=== PATIENT | female | born 1975 | race Two or more races ===

== ENCOUNTER 2019-08-11 08:37 | Outpatient (CLI) | payer OTHER ==
--- NOTE | 2019-08-25 09:32 | Mammography Report ---
Reason: ROUTINE MAMMO Procedure Date: 08/11/2019 Accession Number: [id number] / [id number] Procedure: MGN - Screening Mammo Dig Bilat CPT Code: Final Report FULL RESULT: EXAM: Screening Mammo Dig Bilat DATE: 08/11/2019 9:00 AM CLINICAL HISTORY: Screening encounter. History of late childbearing. TECHNIQUE: (B) - Bilateral CC, laterally exaggerated CC, MLO views were obtained. COMPARISON: 08/08/2016 through 08/30/2015. PARENCHYMAL PATTERN: (D) - The breast(s) demonstrate(s) heterogeneously dense fibroglandular parenchyma. FINDINGS: There are no suspicious masses, calcifications, or areas of distortion. IMPRESSION: Negative examination. BI-RADS category 1. RECOMMENDATION: (ANNUAL) - Recommend routine annual screening mammography. BI-RADS CATEGORY: (1) - Negative. STANDARD QUALIFYING STATEMENTS: 1. This examination was not reviewed with the aid of Computer-Aided Detection (CAD). 2. A negative or benign imaging report should not preclude biopsy if clinically suspicious findings are present. 3. Dense breasts may obscure an underlying neoplasm. 4. This examination was reviewed without the aid of 3D breast imaging (tomosynthesis).
== END 2019-08-11 08:38 | disposition home or self-care (01) ==
LOC: DI.N 08:37
DX: Z12.31 Encounter for screening mammogram for malignant neoplasm of breast (principal)
CPT/HCPCS: 77067

== ENCOUNTER 2020-07-15 15:37 | Outpatient (CLI) | payer OTHER ==
--- NOTE | 2020-07-17 08:13 | MRI Report ---
PROCEDURE: Brain W/O INDICATIONS: BENIGN PITUITARY ADENOMA TECHNIQUE: Noncontrast axial T1 spin echo, axial T2 fast spin echo, sagittal and axial FLAIR, coronal T2 fast sp in echo, axial gradient echo, axial diffusion and ADC through the brain. COMPARISON: None. FINDINGS: Image quality: Excellent. CSF Spaces: Basal cisterns are patent. No extra-axial fluid collections. Ventricles are normal in size and shape. Brain: No intracranial masses or hemorrhage. Burton/white matter interface is normal. Brainstem appe ars normal. Diffusion-weighted images demonstrate no acute ischemic insult. No chronic ischemic ins ults. Normal intravascular flow voids are present. Skull and face: Calvarium has normal marrow signal. Orbits appear normal. Sinuses: Sinuses and mastoids are clear. IMPRESSION: A pituitary mass lesion is not found. There is no MR evidence of a pituitary macroadenoma. A pituitar y microadenoma frequently is not detectable without contrast enhancement imaging and follow-up utiliz ing thin section dynamic contrast imaging technique may be warranted depending on the clinical status . No comparison CT or MR imaging through the brain is currently available for review. Reviewed by: Rhett Ramirez MD on 07/17/2020 8:12 AM [facility] Approved by: Rhett Ramirez MD on 07/17/2020 8:12 AM PST Station ID: [id number]
== END 2020-07-15 15:38 | disposition home or self-care (01) ==
LOC: DI 15:37
PROVIDERS: ATTEND Family Medicine
DX: Z86.018 Personal history of other benign neoplasm (principal)